=== PATIENT | male | born 1970 | race Caucasian/White ===

== ENCOUNTER 2023-12-03 16:26 | Emergency (ER) | payer BC, SELFPAY ==
--- NOTE | ~2023-12-03 | XR_ITS ---
EXAMINATION: XR elbow LT min 3V DATE: 12/03/2023 17:08 INDICATION: Left elbow pain and swelling. TECHNIQUE: 4 views of left elbow were obtained. COMPARISON: None. FINDINGS: Bone alignment is normal. No fracture. There is mild elbow joint osteoarthritis. There is a n enthesophyte at the lateral humeral condyle. No elbow joint effusion. There is soft tissue swelling overlying the olecranon, consistent with bursitis. IMPRESSION: 1. Olecranon bursitis. 2. Mild elbow joint osteoarthritis. Reviewed, dictated and finalized at location E.
[2023-12-03 16:28] VITALS: BP 150/82; PULSE 92; RESP 16; TEMP 37; O2SAT 98
[2023-12-03 17:27] LABS: Basophils Absolute Auto 0.1 K/mm3 (0.0-0.1); Basophils Percent Auto 0.5 % (0.2-1.2); Eosinophils Absolute Auto 0.3 K/mm3 (0-0.3); Eosinophils Percent Auto 2.2 % (0-4.4); Hematocrit 46.7 % (42.0-52.0); Hemoglobin 15.7 g/dL (14.0-18.0); Immature Granulocyte Absolute 0.09 K/mm3 (0.00-0.031); Immature Granulocyte Percent A 0.7 % (0-0.5); Lymphocytes Absolute Auto 1.79 K/mm3 (0.9-3.2); Lymphocytes Percent Auto 14.3 % (18.3-44.2); Mean Corpuscular HGB Conc 33.6 g/dl (32-36); Mean Corpuscular Hemoglobin 30.7 pg (26-34); Mean Corpuscular Volume 91.2 fl (80-100); Mean Platelet Volume 9.3 fl (7.4-10.4); Monocytes Absolute Auto 1.1 K/mm3 (0.1-0.6); Monocytes Percent Auto 8.9 % (2.6-8.5); Neutrophils Absolute Auto 9.2 K/mm3 (1.3-6.7); Neutrophils Percent Auto 73.4 % (45.5-73.1); Platelet Count Result 355 k/mm3 (150-375); Red Blood Count 5.12 M/mm3 (4.6-6.20); White Blood Count 12.5 K/mm3 (4.5-10.0)
--- NOTE | 2023-12-03 17:29 | ED.EXTPRO ---
HPI - Extremity Problem General Chief complaint: Extremity Problem,Nontraumatic Stated complaint: L Elbow Time Seen by Provider: 12/03/23 16:57 Source: patient Mode of arrival: ambulatory Limitations: no limitations History of Present Illness HPI Narrative: Patient is a 52-year-old male, with PMH of DM, HTN, HLD, who presents the ED with report of left elbow pain and swelling. Patient reports he was leaning on the welding table on his left elbow several weeks ago for prolonged period. Over the last couple weeks, he has developed pain and swelling in his left elbow. States over the last 36 hours, pain and swelling have worsened, skin has began peeling, he has noticed it becoming more red and warm. Denies any wounds or drainage that he is aware of. Denies fevers. Related Data Home Medications Medication Instructions Recorded Confirmed amlodipine 10 mg tablet 10 mg PO DAILY 10/13/23 10/13/23 atorvastatin 20 mg tablet 20 mg PO DAILY 10/13/23 10/13/23 empagliflozin 25 mg tablet 25 mg PO DAILY 10/13/23 10/13/23 (Jardiance) fenofibrate micronized 134 mg 134 mg PO DAILY 10/13/23 10/13/23 capsule lisinopril 20 mg tablet 20 mg PO DAILY 10/13/23 10/13/23 metformin 1,000 mg tablet 1,000 mg PO BID 10/13/23 10/13/23 omega-3s 350 [id number]-[id number]-other cap PO 10/13/23 10/13/23 [id number] oil 600 mg capsule (Fish Oil) Allergies Allergy/AdvReac Type Severity Reaction Status Date / Time Penicillins Allergy Unknown UNKNOWN Verified 12/03/23 16:28 Review of Systems Review of Systems: CONSTITUTIONAL: Denies fever, chills, or sweats. MUSCULOSKELETAL: See HPI. NEUROLOGIC: Denies headache, dizziness, numbness, or weakness. All systems reviewed & are unremarkable except as noted in HPI and below PMFSH Past Medical History Medical History Diabetes Hyperlipemia Hypertension Family History Family History Father Alcoholic Cancer Mother Cancer Thyroid disorder Social History Social History Smoking status: Never smoker Tobacco type: cigarettes Alcohol intake: current Substance use: never Substance use type: does not use Do You Feel Safe in your Home?: Yes Lack of Transportation: No Lack of Food: Never True Current Housing: I Have Housing Concerned About Future Housing: No Difficulty Paying Gas/Electric Bills: No Difficulty Paying for Meds: No Currently Unemployed: No Education: Associate Degree Difficulty w/ Childcare or Family Care: No Exam Narrative: GENERAL: Well appearing, well-nourished, non-toxic, in no acute distress. HEAD: Normocephalic, atraumatic. RESPIRATORY: Airway patent, respirations nonlabored. CARDIOVASCULAR: Regular rate and rhythm without murmurs, rubs, or gallops. Radial pulses intact and strong, easily palpable. MUSCULOSKELETAL: Moves all extremities. Mild limited flexion range of motion of L elbow due to pain and swelling. Left elbow with focal swelling over olecranon, consistent with bursitis. Moderate erythema, warmth surrounding olecranon. Skin is flaky and peeling, tip the olecranon blister/bruising. No drainage. Sensation intact throughout left upper extremity. No lymphangitic streaking. SKIN: Warm, dry, normal color. NEURO: A&O X3. Speech clear. PSYCHIATRIC: Appropriate mood and affect. Normal interaction. Course Vital Signs Vital signs: Vital Signs Temperature 98.6 F 12/03/23 16:28 Pulse Rate 92 12/03/23 16:28 Respiratory Rate 16 12/03/23 16:28 Blood Pressure 150/82 H 12/03/23 16:28 Pulse Oximetry 98 12/03/23 16:28 Temperature 98.6 F 12/03/23 16:28 Pulse Rate 83 12/03/23 19:13 Respiratory Rate 18 12/03/23 19:13 Blood Pressure 131/91 H 12/03/23 19:13 Pulse Oximetry 98 12/03/23 19:13 MDM - Extremity (Nontraumatic
[2023-12-03 17:36] LABS: Lactic Acid Reflex 0.9 mmol/L (0.7-2.0)
[2023-12-03 17:41] LABS: Alanine Aminotransferase 14 U/L (6-50); Albumin Level 4.5 g/dL (3.5-5.1); Alkaline Phosphatase 109 U/L (38-126); Anion Gap 10 mmol/L (4-12); Aspartate Amino Transferase 17 U/L (17-59); Bilirubin,Total 0.5 mg/dL (0.2-1.3); Blood Urea Nitrogen 16 mg/dL (9-20); CRP 1.4 mg/dL (<1.0); Calcium 9.3 mg/dL (8.4-10.2); Carbon Dioxide 22 mmol/L (22-30); Chloride 107 mmol/L (98-107); Estimated CRCL calculation 109 ml/min; Estimated Glomerular Filt Rate > 60; Glucose 168 mg/dL (65-110); Potassium 3.9 mmol/L (3.4-5.0); Sodium 139 mmol/L (137-145)
[2023-12-03 18:01] LABS: Erythrocyte Sedimentation Rate 47 mm/hr (0-20)
[2023-12-03] MEDS: ceFAZolin 1 GM/NS 50 ML 1 GM/50 ML BAG IVPB (18:09)
[2023-12-03] MEDS: TETANUS,DIPHTHERIA,AC PERTUSSIS ADULT (0.5 ML) BOOSTRIX IM (18:09)
[2023-12-03] MEDS: VANCOMYCIN 1,000 MG/NS 250 ML 1,000 MG/250 ML BAG 250 MG IVPB (18:28)
[2023-12-03 19:13] VITALS: BP 131/91; PULSE 83; RESP 18; O2SAT 98
== END 2023-12-03 19:32 | disposition home or self-care (01) ==
PROVIDERS: Emergency Provider Physician Assistant; PCP Internal Medicine
DX: M71.122 Other infective bursitis, left elbow (principal); Z23 Encounter for immunization; I10 Essential (primary) hypertension; E78.5 Hyperlipidemia, unspecified; E11.9 Type 2 diabetes mellitus without complications; Z79.84 Long term (current) use of oral hypoglycemic drugs; M19.022 Primary osteoarthritis, left elbow
CPT/HCPCS: 36415; 73080; 80053; 83605; 85025; 85652; 86140; 87040; 87070; 87147; 87181; 87205; 90471; 90715; 96365; 96367; 99284; J0690; J3370